=== PATIENT | male | born 1960 | race Caucasian/White ===

== ENCOUNTER 2019-02-26 08:54 | Emergency (ER) | payer BC ==
[2019-02-26 09:47] VITALS: BP 159/96; PULSE 89
== END 2019-02-26 09:11 | disposition left against medical advice (07) ==
LOC: MW.ED 08:54
DX: Z53.21 Procedure and treatment not carried out due to patient leaving prior to being seen by health care provider (principal)

== ENCOUNTER 2021-11-27 00:26 | Emergency (ER) | payer BC ==
[2021-11-27] MEDS ORDERED: Sodium Chloride 0.9% 1,000 ML IV ONE (01:12)
[2021-11-27] MEDS ORDERED: Sodium Chloride 0.9% 2.5 ML Syringe FLUSH PRN (01:12)
[2021-11-27] MEDS ORDERED: Sodium Chloride 0.9% 10 ML Syringe FLUSH PRN (01:12)
[2021-11-27 02:50] LABS: CARBON DIOXIDE,CO2 28.3 mmol/L (21.0-32.0)
[2021-11-27 03:28] VITALS: BP 130/76; PULSE 76
== END 2021-11-27 03:09 | disposition home or self-care (01) ==
LOC: MW.ED 00:26
DX: I49.3 Ventricular premature depolarization (principal); E78.00 Pure hypercholesterolemia, unspecified; I10 Essential (primary) hypertension; F17.210 Nicotine dependence, cigarettes, uncomplicated; Z88.8 Allergy status to other drugs, medicaments and biological substances; Z79.899 Other long term (current) drug therapy
CPT/HCPCS: 36415; 71045; 80053; 83735; 84443; 84484; 85025; 93005; 96360; 99285; J3490; J7030; 93010; 99284